=== PATIENT | female | born 2000 | race Caucasian/White ===

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

== ENCOUNTER → 2019-01-28 | Outpatient (CLI) | payer MEDICAID ==
[2017-01-04 20:28] VITALS: BP 120/79
[2019-01-28 13:03] LABS: URINE APPEARANCE HAZY; URINE BILIRUBIN NEGATIVE (NEGATIVE); URINE BLOOD NEGATIVE (NEGATIVE); URINE COLOR YELLOW; URINE GLUCOSE NEGATIVE (NEGATIVE); URINE KETONE NEGATIVE (NEGATIVE); URINE NITRATE NEGATIVE (NEGATIVE); URINE PROTEIN(semi-quant) TRACE mg/dL (NEGATIVE); URINE UROBILINOGEN NORMAL (NORMAL)
[2019-01-28 13:04] LABS: URINE LEUKOCYTE ESTERASE TRACE (NEGATIVE)
[2019-01-28 13:24] LABS: ALBUMIN 4.2 g/dL (3.5-5.0); CALCIUM 9.1 mg/dL (8.4-10.2); POTASSIUM 4.3 mmol/L (3.6-5.0); TOTAL BILIRUBIN 0.4 mg/dL (0.2-1.3); TOTAL PROTEIN 7.3 g/dL (6.3-8.2)
[2019-01-28 13:42] LABS: BASO # 0.1 (0.02-0.10); EOS # 0.5 (0.04-0.40); EOS % 4.4 % (0.1-4.0); HEMATOCRIT 42.6 % (35.0-45.0); HEMOGLOBIN 13.9 g/dL (12.0-15.0); LYMPH# 3.4 (1.20-3.40); MEAN CELL VOLUME 90 fl (78-95); MEAN CORPUSCULAR HEMOGLOBIN 29 pg (26-32); MEAN CORPUSCULAR HGB CONC 33 g/dL (33-37); MEAN PLATELET VOLUME 10.8 fl (7.4-10.4); MONO # 0.9 (0.10-0.60); NEU # 5.4 (1.40-6.50); PLATELET COUNT 335 K/mm3 (130-400); RED BLOOD COUNT 4.75 M/mm3 (4.10-5.30); RED CELL DISTRIBUTION WIDTH 12.6 % (11.5-14.5); WHITE BLOOD COUNT 10.2 K/mm3 (4.8-10.8)
== END ==
LOC: LAB 11:12
PROVIDERS: Family Medicine
DX: Z00.00 Encounter for general adult medical examination without abnormal findings (principal); E66.01 Morbid (severe) obesity due to excess calories; N39.0 Urinary tract infection, site not specified

== ENCOUNTER → 2019-03-06 | Outpatient (CLI) | payer MEDICAID ==
[2017-01-04 20:28] VITALS: BP 120/79
[2019-03-06 15:54] LABS: EOS # 0.3 (0.04-0.40); EOS % 4.5 % (0.1-4.0); HEMATOCRIT 44.7 % (35.0-45.0); HEMOGLOBIN 14.3 g/dL (12.0-15.0); MEAN CELL VOLUME 89 fl (78-95); MEAN CORPUSCULAR HEMOGLOBIN 29 pg (26-32); MEAN CORPUSCULAR HGB CONC 32 g/dL (33-37); MEAN PLATELET VOLUME 10.6 fl (7.4-10.4); MONO # 0.8 (0.10-0.60); NEU # 3.5 (1.40-6.50); PLATELET COUNT 307 K/mm3 (130-400); RED BLOOD COUNT 5.02 M/mm3 (4.10-5.30); RED CELL DISTRIBUTION WIDTH 12.8 % (11.5-14.5); WHITE BLOOD COUNT 6.7 K/mm3 (4.8-10.8)
[2019-03-06 16:03] LABS: ALBUMIN 4.3 g/dL (3.5-5.0); CALCIUM 8.8 mg/dL (8.4-10.2); POTASSIUM 3.9 mmol/L (3.6-5.0); TOTAL BILIRUBIN 0.3 mg/dL (0.2-1.3); TOTAL PROTEIN 7.6 g/dL (6.3-8.2)
[2019-03-06 16:24] LABS: URINE APPEARANCE HAZY; URINE BILIRUBIN NEGATIVE (NEGATIVE); URINE BLOOD 250 ery/uL (NEGATIVE); URINE COLOR YELLOW; URINE GLUCOSE NEGATIVE (NEGATIVE); URINE KETONE NEGATIVE (NEGATIVE); URINE LEUKOCYTE ESTERASE 1+ (NEGATIVE); URINE NITRATE NEGATIVE (NEGATIVE); URINE PROTEIN(semi-quant) TRACE mg/dL (NEGATIVE); URINE UROBILINOGEN NORMAL (NORMAL)
== END ==
LOC: RAD 15:27 → LAB 15:27
PROVIDERS: Nurse Practitioner
DX: M25.551 Pain in right hip (principal); R10.9 Unspecified abdominal pain; R11.0 Nausea

== ENCOUNTER → 2019-04-15 | Outpatient (CLI) | payer MEDICAID ==
[2017-01-04 20:28] VITALS: BP 120/79
== END ==
LOC: RAD 08:46
DX: K80.20 Calculus of gallbladder without cholecystitis without obstruction (principal); K21.9 Gastro-esophageal reflux disease without esophagitis; M25.551 Pain in right hip

== ENCOUNTER → 2019-06-26 | Outpatient (CLI) | payer MEDICAID ==
[2017-01-04 20:28] VITALS: BP 120/79
[2019-06-26 16:12] LABS: URINE APPEARANCE HAZY; URINE BILIRUBIN NEGATIVE (NEGATIVE); URINE COLOR YELLOW; URINE GLUCOSE NEGATIVE (NEGATIVE); URINE KETONE NEGATIVE (NEGATIVE); URINE NITRATE NEGATIVE (NEGATIVE); URINE PROTEIN(semi-quant) TRACE mg/dL (NEGATIVE); URINE UROBILINOGEN NORMAL (NORMAL)
[2019-06-26 16:13] LABS: URINE BLOOD 50 ery/uL (NEGATIVE); URINE LEUKOCYTE ESTERASE 1+ (NEGATIVE); URINE WBC 16-30 /hpf (0-3)
== END ==
LOC: LAB 14:19
PROVIDERS: Family Medicine
DX: R30.0 Dysuria (principal)

== ENCOUNTER → 2019-07-01 | Outpatient (CLI) | payer MEDICAID ==
[2017-01-04 20:28] VITALS: BP 120/79
== END ==
LOC: RAD 14:44
DX: N20.0 Calculus of kidney (principal); M62.08 Separation of muscle (nontraumatic), other site; R30.0 Dysuria
CPT/HCPCS: Q9967

== ENCOUNTER → 2019-09-16 | Outpatient (CLI) | payer MEDICAID ==
[2017-01-04 20:28] VITALS: BP 120/79
== END ==
LOC: LAB 16:51
DX: Z01.89 Encounter for other specified special examinations (principal)

== ENCOUNTER → 2020-01-20 | Outpatient (CLI) | payer MEDICAID ==
[2017-01-04 20:28] VITALS: BP 120/79
== END ==
LOC: RAD 15:02
DX: M25.551 Pain in right hip (principal)

== ENCOUNTER 2020-03-19 12:05 | Emergency (ER) | payer MEDICAID ==
[2020-03-19] MEDS ORDERED: SERTRALINE HYD100 MG PO (12:16)
[2020-03-19] MEDS ORDERED: METOPROLOL SUCC25 M1 PO (12:17)
[2020-03-19 12:39] LABS: EOS # 0.3 (0.04-0.40); EOS % 3.9 % (0.1-4.0); HEMATOCRIT 42.6 % (35.0-45.0); HEMOGLOBIN 13.9 g/dL (12.0-15.0); LYMPH# 2.4 (1.20-3.40); MEAN CELL VOLUME 91 fl (78-95); MEAN CORPUSCULAR HEMOGLOBIN 30 pg (26-32); MEAN CORPUSCULAR HGB CONC 33 g/dL (33-37); MEAN PLATELET VOLUME 9.6 fl (7.4-10.4); MONO # 0.7 (0.10-0.60); NEU # 3.8 (1.40-6.50); PLATELET COUNT 336 K/mm3 (130-400); RED CELL DISTRIBUTION WIDTH 12.7 % (11.5-14.5); WHITE BLOOD COUNT 7.2 K/mm3 (4.8-10.8)
[2020-03-19 12:52] LABS: POTASSIUM 4.1 mmol/L (3.5-5.1); SODIUM 142 mmol/L (136-145)
[2020-03-19 12:53] LABS: CALCIUM 8.9 mg/dL (8.3-10.5)
[2020-03-19 12:54] LABS: GLUCOSE 92 mg/dL (65-105); TOTAL PROTEIN 7.2 g/dL (6.4-8.3)
[2020-03-19 12:55] LABS: CARBON DIOXIDE 26 mmol/L (22-29)
[2020-03-19 12:56] LABS: TOTAL BILIRUBIN 0.4 mg/dL (0.2-1.2)
[2020-03-19 13:00] LABS: AST-SGOT 24 U/L (5-34)
[2020-03-19 13:01] LABS: ALT/SGPT 31 U/L (0-55)
[2020-03-19 13:03] LABS: D-DIMER 0.66 mg/L FEU (0.15-0.50)
[2020-03-19 13:16] LABS: TROPONIN-I < 0.03 ng/mL (<0.030)
[2020-03-19 13:37] LABS: URINE COLOR YELLOW
[2020-03-19 13:39] LABS: URINE APPEARANCE HAZY; URINE BILIRUBIN NEGATIVE (NEGATIVE); URINE BLOOD 250 ery/uL (NEGATIVE); URINE GLUCOSE NEGATIVE (NEGATIVE); URINE KETONE NEGATIVE (NEGATIVE); URINE LEUKOCYTE ESTERASE 1+ (NEGATIVE); URINE NITRATE POSITIVE (NEGATIVE); URINE PROTEIN(semi-quant) TRACE mg/dL (NEGATIVE); URINE UROBILINOGEN NORMAL (NORMAL)
[2020-03-19] MEDS ORDERED: BACTRIM DS TAB1 EACH PO (15:46)
[2020-03-19 16:02] VITALS: BP 116/76
== END 2020-03-19 16:03 | disposition home or self-care (01) ==
LOC: ED 12:05
PROVIDERS: Nurse Practitioner
DX: R07.89 Other chest pain (principal); N39.0 Urinary tract infection, site not specified
CPT/HCPCS: J1885; Q9967

== ENCOUNTER → 2020-05-18 | Outpatient (CLI) | payer MEDICAID ==
[~2020-05-18] MED LIST changes: +BACTRIM DS TAB1 EACH PO; +METOPROLOL SUCC25 M1 PO; +SERTRALINE HYD100 MG PO
[2020-05-18 10:50] LABS: URINE APPEARANCE HAZY; URINE BILIRUBIN NEGATIVE (NEGATIVE); URINE COLOR YELLOW; URINE GLUCOSE NEGATIVE (NEGATIVE); URINE KETONE NEGATIVE (NEGATIVE); URINE NITRATE NEGATIVE (NEGATIVE); URINE PROTEIN(semi-quant) TRACE mg/dL (NEGATIVE); URINE UROBILINOGEN NORMAL (NORMAL)
[2020-05-18 10:51] LABS: URINE BLOOD TRACE (NEGATIVE); URINE LEUKOCYTE ESTERASE 1+ (NEGATIVE); URINE MUCUS PRESENT (NOT PRESENT); URINE WBC 16-30 /hpf (0-3)
== END ==
LOC: LAB 09:09
PROVIDERS: Family Medicine
DX: R10.9 Unspecified abdominal pain (principal); R30.0 Dysuria

== ENCOUNTER → 2021-06-28 | Outpatient (CLI) | payer MEDICAID ==
[2021-06-28 12:47] LABS: ALBUMIN 4.2 g/dL (3.5-5.0); POTASSIUM 4.2 mmol/L (3.5-5.1)
[2021-06-28 12:48] LABS: CALCIUM 9.5 mg/dL (8.3-10.5)
[2021-06-28 12:49] LABS: TOTAL PROTEIN 7.9 g/dL (6.4-8.3)
[2021-06-28 12:51] LABS: TOTAL BILIRUBIN 0.4 mg/dL (0.2-1.2)
== END ==
LOC: LAB 11:43
PROVIDERS: Family Medicine
DX: N13.30 Unspecified hydronephrosis (principal)

== ENCOUNTER → 2021-07-21 | Outpatient (CLI) | payer MEDICAID | LOC: RAD 14:41 | DX: N13.30 Unspecified hydronephrosis (principal); Z90.49 Acquired absence of other specified parts of digestive tract ==

== ENCOUNTER → 2021-12-10 | Outpatient (CLI) | payer MEDICAID ==
[2021-12-10 22:37] LABS: ESTRADIOL 17 pg/mL (()); LUTENIZING HORMONE 2.1 mIU/mL (()); PROGESTERONE <0.1 ng/mL (())
== END ==
LOC: LAB 15:22
PROVIDERS: Family Medicine
DX: N91.2 Amenorrhea, unspecified (principal); R19.7 Diarrhea, unspecified

== ENCOUNTER → 2021-12-11 | Outpatient (CLI) | payer MEDICAID | LOC: LAB 15:46 | DX: N91.2 Amenorrhea, unspecified (principal); R19.7 Diarrhea, unspecified ==

== ENCOUNTER → 2022-01-07 | Outpatient (CLI) | payer MEDICAID | LOC: RAD 14:00 | DX: N91.2 Amenorrhea, unspecified (principal) ==

== ENCOUNTER → 2022-08-05 | Outpatient (CLI) | payer MEDICAID | LOC: RAD 11:00 | DX: H47.11 Papilledema associated with increased intracranial pressure (principal) ==

== ENCOUNTER → 2022-12-08 | Outpatient (CLI) | payer MEDICAID | LOC: RAD 12-01 16:00 | DX: H40.059 Ocular hypertension, unspecified eye (principal) ==

== ENCOUNTER → 2024-04-04 | Outpatient (CLI) | payer SELFPAY ==
[2024-05-26 13:55] LABS: ALBUMIN 4.4 g/dL (3.5-5.0); CALCIUM 9.4 mg/dL (8.3-10.5); D-DIMER 0.39 mg/L FEU (0.15-0.50); TOTAL BILIRUBIN 0.3 mg/dL (0.2-1.2); TOTAL PROTEIN 7.7 g/dL (6.4-8.3)
[2024-05-26 13:56] LABS: BASO # 0.03 K/mm3 (0.02-0.10); EOS # 0.27 K/mm3 (0.04-0.40); EOS % 3.7 % (1.0-5.0); HEMATOCRIT 41.8 % (37.0-47.0); HEMOGLOBIN 14.1 g/dL (12.5-16.0); LYMPH# 2.62 K/mm3 (1.50-4.00); MEAN CELL VOLUME 88 fl (78-100); MEAN CORPUSCULAR HEMOGLOBIN 30 pg (27-31); MEAN CORPUSCULAR HGB CONC 34 g/dL (33-37); MEAN PLATELET VOLUME 10.1 fl (7.4-10.4); MONO # 0.57 K/mm3 (0.20-0.80); NEU # 3.84 K/mm3 (1.40-6.50); PLATELET COUNT 361 K/mm3 (130-400); RED BLOOD COUNT 4.75 M/mm3 (4.10-5.30); RED CELL DISTRIBUTION WIDTH 13.3 % (11.5-14.5); WHITE BLOOD COUNT 7.4 K/mm3 (4.8-10.8)
== END ==
LOC: LAB 12:30
PROVIDERS: Nurse Practitioner
DX: H47.11 Papilledema associated with increased intracranial pressure (principal); R06.09 Other forms of dyspnea

== ENCOUNTER → 2025-02-05 | Outpatient (CLI) | payer MEDICAID ==
[2025-02-05 16:10] LABS: BASO # 0.04 K/mm3 (0.02-0.10); EOS # 0.17 K/mm3 (0.04-0.40); EOS % 2.6 % (1.0-5.0); HEMATOCRIT 44.6 % (37.0-47.0); HEMOGLOBIN 14.9 g/dL (12.5-16.0); LYMPH# 1.78 K/mm3 (1.50-4.00); MEAN CELL VOLUME 92 fl (78-100); MEAN CORPUSCULAR HEMOGLOBIN 31 pg (27-31); MEAN CORPUSCULAR HGB CONC 33 g/dL (33-37); MEAN PLATELET VOLUME 9.8 fl (7.4-10.4); MONO # 0.48 K/mm3 (0.20-0.80); NEU # 4.01 K/mm3 (1.40-6.50); PLATELET COUNT 276 K/mm3 (130-400); RED BLOOD COUNT 4.85 M/mm3 (4.10-5.30); RED CELL DISTRIBUTION WIDTH 12.7 % (11.5-14.5); WHITE BLOOD COUNT 6.5 K/mm3 (4.8-10.8)
[2025-02-05 16:14] LABS: ALBUMIN 4.3 g/dL (3.5-5.0)
[2025-02-05 16:15] LABS: CALCIUM 8.9 mg/dL (8.3-10.5)
[2025-02-05 16:17] LABS: TOTAL PROTEIN 7.9 g/dL (6.4-8.3)
[2025-02-05 16:19] LABS: TOTAL BILIRUBIN 0.4 mg/dL (0.2-1.2)
== END ==
LOC: LAB 15:26
PROVIDERS: Nurse Practitioner
DX: Z13.220 Encounter for screening for lipoid disorders (principal); G93.2 Benign intracranial hypertension; R53.83 Other fatigue; M25.372 Other instability, left ankle

== ENCOUNTER → 2025-02-28 | Outpatient (CLI) | payer MEDICAID | LOC: RAD 08:15 | DX: M25.372 Other instability, left ankle (principal) ==